=== PATIENT | female | born 2005 | race Caucasian/White ===

== ENCOUNTER 2024-11-10 01:30 | Emergency (ER) | payer OTHER ==
[~2024-11-10] VITALS: Ht 165.1 cm; Wt 63.5 kg
[2024-11-10 02:03] LABS: URINE AMPHETAMINES Positive (1000ng/ml); URINE BARBITURATES Negative (200ng/ml); URINE BENZODIAZEPINES Negative (200ng/ml); URINE CANNABINOIDS (THC) Negative (50ng/ml); URINE COCAINE Positive (300ng/ml); URINE METHADONE Negative (300ng/ml); URINE OPIATES Negative (300ng/ml); URINE PHENCYCLIDINE Negative (25ng/ml)
[2024-11-10] MEDS ORDERED: LORazepam 1 MG TAB PO ONE (02:10)
== END 2024-11-10 02:40 | disposition home or self-care (01) ==
LOC: ED 01:30
PROVIDERS: Internal Medicine
DX: F14.90 Cocaine use, unspecified, uncomplicated (principal); F15.90 Other stimulant use, unspecified, uncomplicated; F41.9 Anxiety disorder, unspecified; Z79.899 Other long term (current) drug therapy